=== PATIENT | male | born 1990 | race Caucasian/White ===

== ENCOUNTER 2017-09-11 17:30 | Emergency (ER) | payer OTHER ==
[2017-09-11] MEDS: TRIAMCINOLONE ACET 0.025% 15 GM CR TOP (18:55)
[2017-09-11] MEDS: IBUPROFEN 200 MG TAB PO (18:56)
== END 2017-09-11 19:15 | disposition home or self-care (01) ==
LOC: FTE 17:30
DX: T23.171A Burn of first degree of right wrist, initial encounter (principal); X13.1XXA Other contact with steam and other hot vapors, initial encounter; Y92.89 Other specified places as the place of occurrence of the external cause
CPT/HCPCS: 16000; 99283-25

== ENCOUNTER 2017-12-07 05:46 | Emergency (ER) | payer OTHER ==
[2017-12-07] MEDS: IBUPROFEN 800 MG TAB PO (06:32)
== END 2017-12-07 06:52 | disposition home or self-care (01) ==
LOC: FTE 05:46
DX: M25.512 Pain in left shoulder (principal); M54.2 Cervicalgia
CPT/HCPCS: 99282; Z7502